=== PATIENT | male | born 1950 | race Caucasian/White ===

== ENCOUNTER 2020-08-07 07:25 | Outpatient (REF) | payer BC, SELFPAY ==
[2020-08-07 07:31] LABS: MANUAL DIFF FLAG NO
[2020-08-07 07:49] LABS: Basophils Absolute Auto 0.1 X10*3/uL (0.0-0.2); Basophils Percent Auto 1.1 % (0-2); Eosinophils Absolute Auto 0.4 X10*3/uL (0.0-0.4); Eosinophils Percent Auto 6.4 % (0-4); Hematocrit 44.2 % (42-52); Hemoglobin 14.9 g/dl (14.0-18.0); Imm Gran Abs Auto 0.01 X10*3/uL (0.00-0.03); Imm Gran Pct Auto 0.2 % (0.0-0.4); Lymphocytes Absolute Auto 1.7 X10*3/uL (1.2-4.9); Lymphocytes Percent Auto 25.1 % (20-40); Mean Corpuscular HGB Conc 33.7 g/dl (31.0-36.0); Mean Corpuscular Hemoglobin 31.3 pg (27.0-33.0); Mean Corpuscular Volume 92.9 fL (80-98); Mean Platelet Volume 9.8 fL (9.4-12.4); Monocytes Absolute Auto 0.4 X10*3/uL (0.1-1.2); Monocytes Percent Auto 6.1 % (2-11); Neutrophils Percent Auto 61.1 % (45-73); Platelet Count 204 X10*3/uL (160-400); Red Blood Count 4.76 X10*6/uL (4.60-5.80); Red Cell Distribution Width 11.8 % (11.0-16.0); White Blood Count 6.6 X10*3/uL (4.8-10.8)
[2020-08-07 08:34] LABS: Alanine Aminotransferase 10 U/L (0-40); Albumin Level 4.3 g/dL (3.5-5.0); Alkaline Phosphatase 69 U/L (39-117); Anion Gap 10 (12-20); Aspartate Amino Transferase 14 U/L (5-37); Bilirubin Total 0.9 mg/dL (0.0-1.0); Blood Urea Nitrogen 13 mg/dL (9-16); Carbon Dioxide 31 mmol/L (22-29); Chloride 103 mmol/L (96-108); Cholesterol 185 mg/dL; Estimated Glomerular Filt Rate > 60; Glucose Fasting 94 mg/dL (60-99); HDL Cholesterol 61 mg/dL; LDL Cholesterol Calculated 105 mg/dl; Potassium 4.6 mmol/l (3.3-5.1); Sodium 139 mmol/L (135-145); Total Protein 6.5 g/dL (6.5-8.0); Triglycerides 96 mg/dL
[2020-08-07 08:54] LABS: Prostate Specific Antigen Scr 0.81 ng/mL (<0.05-4.0)
== END 2020-08-07 07:26 | disposition home or self-care (01) ==
LOC: HO.LAB 07:25
PROVIDERS: Visit Provider Internal Medicine
DX: E11.9 Type 2 diabetes mellitus without complications (principal); N40.0 Benign prostatic hyperplasia without lower urinary tract symptoms
CPT/HCPCS: 36415; 80053; 80061; 84153; 85025

== ENCOUNTER 2020-10-08 13:50 | Outpatient (REF) | payer BC, SELFPAY ==
--- NOTE | 2020-10-08 13:56 | MM_ITS ---
EXAMINATION: MM DIAGNOSTIC DIGITAL BREAST TOMOSYNTHESIS, BILATERAL US DIAGNOSTIC ULTRASOUND BREAST, LEFT CLINICAL INFORMATION: 70 year old male with small palpable area for six-month inferior medial left breast. No pain or discharge. No prior breast imaging. COMPARISON: None (current study represents initial baseline exam). TECHNIQUE: Digital breast tomosynthesis is performed in both the craniocaudal and mediolateral oblique views along with computer-aided detection (CAD). Synthesized 2D images are generated from the tomosynthesis. Left images obtained with symptom marker. Ultrasound left breast is targeted to the area of clinical concern. Patient is able to point to area of concern at time of imaging. Grayscale imaging and color Doppler are performed without and with harmonics. FINDINGS: The breasts are almost entirely fatty (ACR BI-RADS breast composition Category a). There is no mass or architectural abnormality. No skin thickening or coarsening of the stromal markings. There are no abnormal calcifications. No focal duct ectasia. Ultrasound left breast demonstrates 2 small oval uniformly hyperechoic fat lobules near area of palpable concern. The larger 9:00 position 7 cm from nipple measuring 1.3 x 0.6 cm. The smaller at 8:00 position 8 cm from nipple measuring 0.5 x 0.4 cm. Both residing immediately beneath the skin with no mass effect and no mammographic correlate other than normal fat composition on mammography. There is no architectural abnormality or duct ectasia or edema tracking in soft tissue planes. No skin thickening. No intradermal lesion. Results are discussed with the patient at time of visit. MM/MM tomosynthesis diagnostic BI IMPRESSION: No mammographic evidence of malignancy. There are 2 incidental benign fat lobules on ultrasound in the area of patient palpable concern. ASSESSMENT: BI-RADS 2: Benign RECOMMENDATION: Patient may be followed clinically as needed. If there is ongoing clinical concern, further evaluation may be considered with surgical consult.
== END 2020-10-08 13:51 | disposition home or self-care (01) ==
LOC: HO.MAMMO 13:50
PROVIDERS: PCP Internal Medicine; Visit Provider Internal Medicine
DX: N63.22 Unspecified lump in the left breast, upper inner quadrant (principal)
CPT/HCPCS: 76642; 77062; 77066

== ENCOUNTER → 2020-10-31 09:44 | Outpatient (BNVA) | payer BC, SELFPAY | PROVIDERS: Visit Provider Urology ==

== ENCOUNTER 2021-08-15 10:38 | Outpatient (REF) | payer BC, SELFPAY ==
[2021-08-15 13:54] LABS: MANUAL DIFF FLAG NO
[2021-08-15 14:00] LABS: Basophils Absolute Auto 0.1 X10*3/uL (0.0-0.2); Eosinophils Absolute Auto 0.2 X10*3/uL (0.0-0.4); Eosinophils Percent Auto 3.8 % (0-4); Hematocrit 45.2 % (42.0-52.0); Hemoglobin 15.1 g/dl (14.0-18.0); Imm Gran Abs Auto 0.01 X10*3/uL (0.00-0.03); Imm Gran Pct Auto 0.2 % (0.0-0.4); Lymphocytes Absolute Auto 1.3 X10*3/uL (1.2-4.9); Lymphocytes Percent Auto 21.8 % (20-40); Mean Corpuscular HGB Conc 33.4 g/dl (31.0-36.0); Mean Corpuscular Hemoglobin 30.9 pg (27.0-33.0); Mean Corpuscular Volume 92.6 fL (80.0-98.0); Monocytes Absolute Auto 0.4 X10*3/uL (0.1-1.2); Monocytes Percent Auto 6.6 % (2-11); Neutrophils Absolute Auto 4.1 x10*3/uL (2.0-8.3); Neutrophils Percent Auto 66.6 % (45-73); Platelet Count 220 X10*3/uL (160-400); Red Blood Count 4.88 X10*6/uL (4.60-5.80); Red Cell Distribution Width 12.2 % (11.0-16.0); White Blood Count 6.1 X10*3/uL (4.8-10.8)
[2021-08-15 14:25] LABS: Alanine Aminotransferase 14 U/L (0-40); Albumin Level 4.4 g/dL (3.5-5.0); Alkaline Phosphatase 71 U/L (39-117); Anion Gap 9 (12-20); Aspartate Amino Transferase 14 U/L (5-37); Bilirubin Total 0.8 mg/dL (0.0-1.0); Blood Urea Nitrogen 12 mg/dL (9-16); Calcium 9.3 mg/dL (8.4-10.2); Carbon Dioxide 31 mmol/L (22-29); Chloride 101 mmol/L (96-108); Cholesterol 200 mg/dL; Estimated Glomerular Filt Rate > 60; Glucose Fasting 89 mg/dL (60-99); HDL Cholesterol 59 mg/dL; LDL Cholesterol Calculated 116 mg/dl; Potassium 4.3 mmol/L (3.3-5.1); Sodium 137 mmol/L (135-145); Total Protein 6.7 g/dL (6.5-8.0); Triglycerides 126 mg/dL
[2021-08-15 14:43] LABS: Prostate Specific Antigen Scr 0.88 ng/mL (<0.05-4.0)
== END 2021-08-15 10:39 | disposition home or self-care (01) ==
LOC: HO.HMGCLDS 10:38
PROVIDERS: PCP Internal Medicine; Visit Provider Internal Medicine
DX: Z00.00 Encounter for general adult medical examination without abnormal findings (principal)
CPT/HCPCS: 36415; 80053; 80061; 84153; 84443; 85025

== ENCOUNTER → 2022-08-04 09:18 | Outpatient (BNVA) | payer MEDICARE, SELFPAY | PROVIDERS: PCP Internal Medicine; Visit Provider Urology | DX: N40.1 Benign prostatic hyperplasia with lower urinary tract symptoms (principal); N13.8 Other obstructive and reflux uropathy | CPT/HCPCS: 51798; 99212 ==

== ENCOUNTER 2022-08-05 10:01 | Outpatient (REF) | payer MEDICARE, SELFPAY ==
[2022-08-05 10:22] LABS: MANUAL DIFF FLAG NO
[2022-08-05 10:29] LABS: Basophils Absolute Auto 0.1 X10*3/uL (0.0-0.2); Basophils Percent Auto 0.9 % (0-2); Eosinophils Absolute Auto 0.3 X10*3/uL (0.0-0.4); Eosinophils Percent Auto 5.7 % (0-4); Hematocrit 43.4 % (42.0-52.0); Hemoglobin 14.6 g/dl (14.0-18.0); Imm Gran Abs Auto 0.01 X10*3/uL (0.00-0.03); Imm Gran Pct Auto 0.2 % (0.0-0.4); Lymphocytes Absolute Auto 1.3 X10*3/uL (1.2-4.9); Lymphocytes Percent Auto 24.3 % (20-40); Mean Corpuscular HGB Conc 33.6 g/dl (31.0-36.0); Mean Corpuscular Hemoglobin 31.3 pg (27.0-33.0); Mean Corpuscular Volume 92.9 fL (80.0-98.0); Mean Platelet Volume 10.2 fL (9.4-12.4); Monocytes Absolute Auto 0.3 X10*3/uL (0.1-1.2); Monocytes Percent Auto 5.3 % (2-11); Neutrophils Absolute Auto 3.5 x10*3/uL (2.0-8.3); Neutrophils Percent Auto 63.6 % (45-73); Platelet Count 216 X10*3/uL (160-400); Red Blood Count 4.67 X10*6/uL (4.60-5.80); Red Cell Distribution Width 12.1 % (11.0-16.0); White Blood Count 5.5 X10*3/uL (4.8-10.8)
[2022-08-05 11:06] LABS: Anion Gap 15 (12-20); Carbon Dioxide 28 mmol/L (22-29); Chloride 104 mmol/L (96-108); Potassium 4.8 mmol/L (3.3-5.1); Sodium 142 mmol/L (135-145)
[2022-08-05 11:07] LABS: Alanine Aminotransferase 19 U/L (0-40); Albumin Level 4.2 g/dL (3.5-5.0); Alkaline Phosphatase 72 U/L (39-117); Aspartate Amino Transferase 17 U/L (5-37); Bilirubin Total 0.3 mg/dL (0.0-1.0); Blood Urea Nitrogen 16 mg/dL (9-16); Calcium 9.3 mg/dL (8.4-10.2); Cholesterol 188 mg/dL; Estimated Glomerular Filt Rate > 60; Glucose Fasting 100 mg/dL (60-99); HDL Cholesterol 56 mg/dL; LDL Cholesterol Calculated 112 mg/dl; Total Protein 6.4 g/dL (6.5-8.0); Triglycerides 103 mg/dL
== END 2022-08-05 10:02 | disposition home or self-care (01) ==
LOC: HO.10HDL 10:01
PROVIDERS: Visit Provider Internal Medicine
DX: Z13.0 Encounter for screening for diseases of the blood and blood-forming organs and certain disorders involving the immune mechanism (principal); I10 Essential (primary) hypertension; E78.5 Hyperlipidemia, unspecified
CPT/HCPCS: 36415; 80053; 80061; 85025

== ENCOUNTER 2023-07-24 09:15 | Outpatient (REF) | payer MEDICARE, SELFPAY ==
[2023-07-24 14:23] LABS: PSA,Total (Free>4and<10) 1.31 ng/mL (0.00-4.00)
== END 2023-07-24 09:16 | disposition home or self-care (01) ==
LOC: HO.LAB 09:15
PROVIDERS: PCP Internal Medicine; Visit Provider Urology
DX: N40.1 Benign prostatic hyperplasia with lower urinary tract symptoms (principal); R33.8 Other retention of urine; Z12.5 Encounter for screening for malignant neoplasm of prostate
CPT/HCPCS: 36415; 84153

== ENCOUNTER 2023-08-05 08:36 | Outpatient (AMB) | payer MEDICARE, SELFPAY ==
--- NOTE | 2023-08-05 08:37 | A.OFFVIS_ITS ---
Intake Intake Visit Reasons: 1Y PSA(set) Intake Note: pt presents for telehealth 1 yr PSA follow up Redevelopment Specialist Required: No Allergies No Known Drug Allergies [NO KNOWN DRUG ALLERGIES] Allergy (Unknown, Verified 08/05/23 08:38) NONE HPI HPI Comments History of Present Illness Details Mauri DANIEL is a very pleasant male. He is a patient of Dr Myrick. They are seen in the office today for the following urologic conditions. - lower urinary tract symptoms Telemedicine Evaluation 15 min Consultation [employer] Srinivasan Video Lower Urinary Tract Symptoms: Large prostate, mild incomplete emptying. Maximized on finasteride. Happy with current voiding performance Minimal urgency on medication Does have occasional nocturia based on what he drinks Finasteride M/W/F SHARMIN normal 12 month PSA Current visit is for further evaluation of, lower urinary tract symptoms, predominate obstructive symptoms. Current treatment includes 5-AR. Prostate Symptom Score 07/22 , Moderate (9-19), Bother 3. Symptoms include incomplete emptying, weak stream, and are progressing. Prior Prostate Score unknown. Prostate volume 07/22 US 122 size - PSA 07/02 3.4, 08/24 .9, 08/26 1.3 Testing at next visit will include bladder scan. Treatment plan continue 5AR PFSH Medical History Prostatism Surgical History History of inguinal hernia repair Family History Father No problems noted. Mother No problems noted. Social History Housing: House Alcohol intake: current Alcohol intake frequency: a few times a week Patient Tobacco Use Status: Never used Tobacco e-Cigarette/Vaping Use: Never Used Second Hand Smoke Exposure: No service: No Current occupational status: retired Cognitive needs: No Hearing needs: No Vision needs: No Review of Systems Const All systems reviewed & are unremarkable except as noted in HPI and below Reports no additional complaints Resp Reports no additional complaints GI Reports no additional complaints Reports as per HPI Musc Reports no additional complaints Physical Exam Telemedicine evaluation Appropriate responses Regular breathing rate and rhythm HEENT Head: Yes normal to inspection Ears: hearing grossly normal bilaterally Eyes General: appearance normal, both eyes and all related structures Neck Neck: Yes normal visual inspection Chest Chest palpation & inspection: normal inspection of the chest Resp Effort & Inspection: normal respiratory effort and able to speak in complete sentences Assessment & Plan Assessment & Plan (1) BPH w urinary obs/LUTS: Code(s): N40.1 - Benign prostatic hyperplasia with lower urinary tract symptoms; N13.8 - Other obstructive and reflux uropathy (2) Incomplete emptying of bladder due to benign prostatic hyperplasia: Code(s): N40.1 - Benign prostatic hyperplasia with lower urinary tract symptoms; R33.9 - Retention of urine, unspecified Plan Twelve month follow-up Medications: Refilled finasteride 5 mg PO DAILY 90 days 90 tabs 1RF Patient Instructions: Imaging studies, laboratory and physical exam results were discussed and reviewed in detail. No major barriers to patient understanding were identified. An opportunity to ask questions regarding the treatment plan was provided. All questions were answered. The patient expressed understanding and agreement with the above treatment plan. The patient is aware they should contact our office by phone for worsening of their current condition or the appearance of new urologic symptoms. Compliance is encouraged with any medications and followup testing that is ordered. It is a privilege to participate in the urologic care of your patient. If you have any questions or concerns regarding treatment for the above conditions, or other urologic issues, please do not hesitate to contact me. The office telephone contact is [phone]. This note is constructed using voice recognition software. While every effort has been made to ensure accuracy forest practices field coordinator errors may have been included. Yours sincerely, Dr Kong Almodovar MD, [facility] - Urology Providers of Expert, Compassionate Care for the Genitourinary System Telehealth Telehealth Location of provider rendering services: practice address Location of patient: address on file Patient Identification confirmed using: Name, : Yes Telehealth method: video Patient verbally consented to treatment: Yes Patient verbally consented to billing insurance company: Yes Patient informed of any privacy concerns related to visit: Yes Coding Level of Care Code Tele Est Pt Level 4 (47923) Diagnoses BPH w urinary obs/LUTS N40.1; N13.8 Incomplete emptying of bladder due to benign prostatic hyperplasia N40.1; R33.9
== END 2023-08-05 09:49 | disposition home or self-care (01) ==
LOC: HO.HUSH 08:36
PROVIDERS: PCP Internal Medicine; Visit Provider Urology
DX: N40.1 Benign prostatic hyperplasia with lower urinary tract symptoms (principal); N13.8 Other obstructive and reflux uropathy; R33.9 Retention of urine, unspecified
CPT/HCPCS: 99213

== ENCOUNTER → 2023-08-05 08:36 | Outpatient (BNVA) | payer MEDICARE, SELFPAY | PROVIDERS: PCP Internal Medicine; Visit Provider Urology ==

== ENCOUNTER 2023-08-10 08:55 | Outpatient (AMB) | payer MEDICARE, SELFPAY ==
[2023-08-10 08:59] VITALS: BP 110/82; PULSE 65; O2SAT 97; BMI 29.5
--- NOTE | 2023-08-10 08:59 | MHC.PC.OV ---
Vital Signs 08/10/23 08:59 Height 5 ft 8 in Weight 194 lb BMI 29.5 BP 110/82 Blood Pressure Location Lt brachial Position Sitting Pulse 65 Pulse Source Pulse Oximeter Pulse Oximetry (%) 97 Oxygen Delivery Method Room Air Intake Visit Reasons: Annual Exam Middle School Coach Required: No Organ Pipe Voicer: Not Required per policy Accompanied by: Self / Same As Patient Allergies No Known Drug Allergies [NO KNOWN DRUG ALLERGIES] Allergy (Unknown, Verified 08/10/23 08:59) NONE Medication List - Last Reconciled 08/10/23 by Edward Rivera MD finasteride 5 mg PO DAILY 90 days Tobacco use date assessed: 08/10/23 Fall risk assessment: No Falls in past year Last assessed Fall Risk: 08/10/23 Dental Screening Dental Screen Date: 08/10/23 Did you have a dental visit in the last 12 months?: Yes Did you have a dental problem in the last 6 months where you did not have access to dental care?: No Was dental information given to patient?: Patient has dentist HPI Annual Exam HPI Details BPH on Rx; sees urology [facility] Medical History Prostatism Surgical History History of inguinal hernia repair Family History Father No problems noted. Mother No problems noted. Social History Housing: House Alcohol intake: current Alcohol intake frequency: a few times a week Patient Tobacco Use Status: Never used Tobacco e-Cigarette/Vaping Use: Never Used Second Hand Smoke Exposure: No service: No Current occupational status: retired Cognitive needs: No Hearing needs: No Vision needs: No Questionnaire PHQ-9 Over the last 2 weeks, how often have you been bothered by any of the following problems? 1. Little interest or pleasure in doing things: not at all 2. Feeling down, depressed, or hopeless: not at all 3. Trouble falling or staying asleep, or sleeping too much: not at all 4. Feeling tired or having little energy: not at all 5. Poor appetite or overeating: not at all 6. Feeling bad about yourself - or that you are a failure or have let yourself or your family down: not at all 7. Trouble concentrating on things, such as reading the newspaper or watching television: not at all 8. Moving or speaking so slowly that other people could have noticed. Or the opposite - being so fidgety or restless that you have been moving around a lot more than usual: not at all 9. Thoughts that you would be better off or of hurting yourself in some way: not at all Total score: 0 Depression Screening Interpretation: Negative Depression Screening Done: Yes 34281 - PHQ-9 Billing: Yes Source: Developed by Drs. Lei Dover, Lilliana Olmstead, Joe Ruiz and colleagues, with an educational rasta from [employer]. Thrive Questionnaire Date Thrive assessed: 08/10/23 I am a: Patient What is your living situation today?: I have a steady place to live Within the past 12 months, did the food you bought not last and you didn't have the money to get more?: Never true Within the past 12 months, did you worry whether your food would run out before you got money to buy more?: Never true Do you have trouble paying for medicines?: No Do you have trouble getting transportation to medical appointments?: No Do you have trouble paying your heating and electricity bill?: No Do you have trouble taking care of your child, family member or friend?: No Do you have trouble with day-to-day activities such as bathing, preparing meals, shopping, managing finances, etc.?: No Are you currently unemployed and looking for a job?: No Are you interested in more education?: No Please select the resources that you would like help with: None AUDIT C Alcohol Use Questionnaire (AUDIT-C) 1. How often do you have a drink containing alcohol?: 2-3 times a week 2. How many drinks containing alcohol do you have on a typical day when you are drinking?: 1 or 2 Total Score: 3 Score Reviewed/Action Taken: Yes CRISELDA-7 AMB Questionnaire CRISELDA-7 Date CRISELDA - 7 assessed: 08/10/23 Feeling nervous, anxious, or on edge: 0 = Not at all Not being able to stop or control worryin = Not at all Worrying too much about different things: 0 = Not at all Trouble relaxin = Not at all Being so restless that it is hard to sit still: 0 = Not at all Becoming easily annoyed or irritable: 0 = Not at all Feeling afraid as if something awful might happen: 0 = Not at all Total CRISELDA-7 score (0-4 normal; 5-9 mild; 10-14 moderate; 15-21 severe): 0 Source: Developed by Drs. Lei Dover, Lilliana Olmstead, Joe Ruiz and colleagues, with an educational rasta from [employer]. CRISELDA-7 Assessment Billing CRISELDA-7 Assessment Tool: CRISELDA-7 Assessment 77101 Review of Systems Const Denies chills, Denies fatigue, Denies headache(s) and Denies weight loss Eyes Denies change in vision, Denies diplopia and Denies eye pain ENT Denies vertigo, Denies dizziness, Denies headache(s) and Denies nasal discharge Card Denies chest pain, Denies rapid heart rate and Denies dyspnea on exertion Resp Denies chest congestion, Denies cough, Denies pain with cough and Denies dyspnea on exertion GI Denies abdominal pain, Denies hematochezia and Denies change in bowel habits Musc Denies myalgias, Denies arthralgias and Denies joint swelling Skin/Breast Denies lesions and Denies unusual bruising Neuro Denies vertigo, Denies dizziness, Denies headache(s) and Denies focal weakness Endo Denies fatigue Physical exam (Primary Care) Vital Signs: Last Vital Signs Pulse 65 08/10/23 08:59 BP 110/82 08/10/23 08:59 Pulse Ox 97 08/10/23 08:59 Oxygen Delivery Method Room Air 08/10/23 08:59 BMI result Body Mass Index 29.5 Tobacco/Smoking Status: Tobacco use Status Tobacco use date assessed 08/10/23 08/10/23 09:06 Patient Tobacco Use Status Never used Tobacco 08/10/23 09:06 e-Cigarette/Vaping Use Never Used 08/10/23 09:06 PHQ-9: PHQ-9 Score PHQ-9: Total score 0 08/10/23 09:10 Depression Screening Interpretation: Negative Thrive Assessment: Date of Thrive Assessment Date Thrive assessed 08/10/23 08/10/23 09:06 Advance Care Planning discussion: On file, no changes Forms completed: Health Care Proxy Const General: cooperative, healthy appearing and no acute distress Orientation/consciousness: oriented to person, oriented to place and oriented to time HENNH Head: Yes normal to inspection, Yes normocephalic and Yes atraumatic Mouth: Normal oral and palatal mucosa present and tongue normal Throat: Yes posterior oropharynx normal and Yes uvula midline Eyes General: appearance normal, both eyes and all related structures Neck Neck: Yes normal visual inspection, Yes full ROM and Yes no lymphadenopathy Thyroid: Thyroid normal Carotids: normal carotid upstroke Chest Chest palpation & inspection: normal inspection of the chest Resp Effort & Inspection: normal respiratory effort and able to speak in complete sentences Auscultation: clear to auscultation bilaterally Cardio Jugular venous distension: no JVD Palpation: normal PMI Rate: regular rate Rhythm: regular rhythm Heart sounds: S1 normal heart sound present and S2 normal heart sound present GI Inspection: Yes normal to inspection Palpation (GI): Soft to palpation and No hepatosplenomegaly present Auscultation: normal bowel sounds General: Yes no CVA tenderness Back/Spine/Pelvis Back: no CVA tenderness Skin General skin exam: no rashes or lesions noted Neuro General: oriented to person, oriented to place and oriented to time Extrem General: Yes normal to inspection and Yes full ROM Office Procedures Flu Questionnaire Does the patient have a severe egg allergy?: No Does the patient have severe life threatening allergies?: No Does the patient have a fever or illness today?: No Has the patient ever had Guillain-[place] Syndrome?: No Has the patient ever had any past reaction to a flu shot?: No Immunizations flu vacc [id number] 6mos up(PF) 60 mcg(15 mcgx4)/0.5 mL IM syringe Performing Provider: Edward Rivera MD Performing Location: [facility] Administered by: ZACKERY Guerrero on 08/10/23 09:10 Dose Route Admin Location Dispensed Lot Number Expiration Date NDC [employer] Furniture [employer] 0.5 mL IM Left Deltoid 0.5 mL [id number] 04/02/24 84061-066-76 [facility] VIS Given Date VIS Provided VIS Publication Date 08/10/23 Single Vaccine 21 Eligibility Eligibility Date Funding Source Not [facility] Eligible 08/10/23 Private Assessment and Plan Assessment & Plan (1) Physical exam: Code(s): Z00.00 - Encounter for general adult medical examination without abnormal findings Plan: do labs (2) Prostatism: Code(s): N40.0 - Benign prostatic hyperplasia without lower urinary tract symptoms Plan: stable; same rx Orders: Orders Complete Blood Count Auto Diff Today D64.9 - Anemia, unspecified Comprehensive [place]. Panel Fast Today N28.9 - Disorder of kidney and ureter, unspecified Lipid Panel Today E78.5 - Hyperlipidemia, unspecified Influenza 9639-9026 Immunization Today Z23 - Encounter for immunization Thyroid Stimulating Hormone Today E03.9 - Hypothyroidism, unspecified Referrals Podiatry Referral B35.1 - Tinea unguium Coding Level of Care Code Est Pt Prev Care >65y(99585) Diagnoses Physical exam Z00.00 Prostatism N40.0 Additional Codes CRISELDA-7 Assessment Billing - CRISELDA-7 Assessment Tool: CRISELDA-7 Assessment 38997 ([id number]) Vital Signs *Quality* - Advance Care Planning discussion: On file, no changes ([id number])
== END 2023-08-10 09:28 | disposition home or self-care (01) ==
PROVIDERS: Visit Provider Internal Medicine
DX: Z00.00 Encounter for general adult medical examination without abnormal findings (principal); N40.0 Benign prostatic hyperplasia without lower urinary tract symptoms; Z23 Encounter for immunization
CPT/HCPCS: 1123F; 90471; 90686; 99397

== ENCOUNTER 2023-08-18 11:16 | Outpatient (REF) | payer MEDICARE, SELFPAY ==
[2023-08-18 13:21] LABS: MANUAL DIFF FLAG NO
[2023-08-18 13:30] LABS: Basophils Percent Auto 0.7 % (0-2); Eosinophils Absolute Auto 0.3 X10*3/uL (0.0-0.4); Eosinophils Percent Auto 4.9 % (0-4); Hematocrit 43.8 % (42.0-52.0); Hemoglobin 14.8 g/dl (14.0-18.0); Imm Gran Abs Auto 0.01 X10*3/uL (0.00-0.03); Imm Gran Pct Auto 0.2 % (0.0-0.4); Lymphocytes Absolute Auto 1.6 X10*3/uL (1.2-4.9); Lymphocytes Percent Auto 26.7 % (20-40); Mean Corpuscular HGB Conc 33.8 g/dl (31.0-36.0); Mean Corpuscular Volume 94.6 fL (80.0-98.0); Mean Platelet Volume 10.8 fL (9.4-12.4); Monocytes Absolute Auto 0.4 X10*3/uL (0.1-1.2); Monocytes Percent Auto 6.1 % (2-11); Neutrophils Absolute Auto 3.7 x10*3/uL (2.0-8.3); Neutrophils Percent Auto 61.4 % (45-73); Platelet Count 197 X10*3/uL (160-400); Red Blood Count 4.63 X10*6/uL (4.60-5.80)
[2023-08-18 14:28] LABS: Alanine Aminotransferase 9 U/L (0-40); Albumin Level 4.3 g/dL (3.5-5.0); Alkaline Phosphatase 65 U/L (39-117); Anion Gap 10 (12-20); Aspartate Amino Transferase 14 U/L (5-37); Bilirubin Total 0.7 mg/dL (0.0-1.0); Blood Urea Nitrogen 15 mg/dL (9-16); Calcium 9.3 mg/dL (8.4-10.2); Carbon Dioxide 30 mmol/L (22-29); Chloride 105 mmol/L (96-108); Cholesterol 183 mg/dL (<200); Estimated Glomerular Filt Rate > 60; Glucose Fasting 85 mg/dL (60-99); HDL Cholesterol 61 mg/dL (>40); LDL Cholesterol Calculated 103 mg/dL (<100); Potassium 3.9 mmol/L (3.3-5.1); Sodium 141 mmol/L (135-145); Total Protein 6.9 g/dL (6.5-8.0); Triglycerides 95 mg/dL (<150)
[2023-08-18 14:35] LABS: Thyroid Stimulating Hormone 1.85 uIU/mL (0.32-4.0)
== END 2023-08-18 11:17 | disposition home or self-care (01) ==
LOC: HO.HMGCLDS 11:16
PROVIDERS: PCP Internal Medicine; Visit Provider Internal Medicine
DX: E78.5 Hyperlipidemia, unspecified (principal); D64.9 Anemia, unspecified; N28.9 Disorder of kidney and ureter, unspecified; E03.9 Hypothyroidism, unspecified
CPT/HCPCS: 36415; 80053; 80061; 84443; 85025

== ENCOUNTER 2024-08-04 09:30 | Outpatient (AMB) | payer MEDICARE, SELFPAY ==
--- NOTE | 2024-08-04 09:33 | A.OFFVIS_ITS ---
Intake Visit Reasons: 1y/PVR Intake Note: Patient is present for PVR Follow Up Urology Med: Finasteride Antibiotic Allergy: None Blood Thinner: None Last PSA: 2022 1.31 Last PVR:35ml Todays PVR:0ml Civil Engineer Helper Required: No Accompanied by: Self / Same As Patient Allergies No Known Drug Allergies [NO KNOWN DRUG ALLERGIES] Allergy (Unknown, Verified 08/04/24 09:35) NONE HPI Comments Details: Mauri DANIEL is a very pleasant male. He is a patient of Dr Myrick. They are seen in the office today for the following urologic conditions. - lower urinary tract symptoms Yearly follow-up Continues with finasteride Discussed erectile medications He is considering Lower Urinary Tract Symptoms: Large prostate, mild incomplete emptying. Maximized on finasteride. Happy with current voiding performance Minimal urgency on medication Does have occasional nocturia based on what he drinks Finasteride M/W/F SHARMIN normal 12 month PSA Current visit is for further evaluation of, lower urinary tract symptoms, predominate obstructive symptoms. Current treatment includes 5-AR. Prostate Symptom Score 07/22 , Moderate (9-), Bother 3. Symptoms include incomplete emptying, weak stream, and are progressing. Prior Prostate Score unknown. Prostate volume 07/22 US 122 size - PSA 07/02 3.4, 08/24 .9, 08/26 1.3 Testing at next visit will include bladder scan. Treatment plan continue 5AR PFSH Medical History Prostatism Surgical History History of inguinal hernia repair Family History Father No problems noted. Mother No problems noted. Social History Housing: House Alcohol intake: current Alcohol intake frequency: a few times a week Patient Tobacco Use Status: Never used Tobacco e-Cigarette/Vaping Use: Never Used Second Hand Smoke Exposure: No service: No Current occupational status: retired Cognitive needs: No Hearing needs: No Vision needs: No Review of Systems Const Denies chills and Denies fever(s) Card Reports no additional complaints and Denies syncope Resp Denies cough GI Denies abdominal pain and Denies heartburn Reports as per HPI and Denies change in libido Neuro Denies syncope Psych Denies change in libido Endo Denies change in libido Physical Exam Const General: cooperative, healthy appearing, comfortable and no acute distress Orientation/consciousness: patient oriented x3 HEENT Face and sinus: Yes normal facial exam Mouth: moist mucous membranes Neck Neck: Yes normal visual inspection, Yes full ROM and Yes trachea midline Chest Chest palpation & inspection: normal inspection of the chest Resp Effort & Inspection: normal respiratory effort, able to speak in complete sentences and no respiratory distress GI Inspection: Yes normal to inspection Back/Spine/Pelvis Cervical Spine: normal cervical lordosis Thoracic/Lumbar Spine: thoracic and lumbar spine normal to inspection Skin General skin exam: no rashes or lesions noted Neuro General: patient oriented x3, gait normal, tone normal and moves all extremities Extrem General: Yes normal to inspection and Yes capillary refill normal Office Procedures Post Void Residual Post Residual Void Post Void Residual (PVR): 35 [id number] Void Residual by ultrasound Assessment & Plan Assessment & Plan (1) BPH w urinary obs/LUTS: Code(s): N40.1 - Benign prostatic hyperplasia with lower urinary tract symptoms; N13.8 - Other obstructive and reflux uropathy Category: Medical (2) Incomplete emptying of bladder due to benign prostatic hyperplasia: Code(s): N40.1 - Benign prostatic hyperplasia with lower urinary tract symptoms; R33.9 - Retention of urine, unspecified Category: Medical Plan Continue finasteride Yearly follow-up Orders: Orders AMB Post Void Residual by ultrasound Today N40.1 - Benign prostatic hyperplasia with lower urinary tract symptoms, R33.9 - Retention of urine, unspecified Patient Instructions: Imaging studies, laboratory and physical exam results were discussed and reviewed in detail. No major barriers to patient understanding were identified. An opportunity to ask questions regarding the treatment plan was provided. All questions were answered. The patient expressed understanding and agreement with the above treatment plan. The patient is aware they should contact our office by phone for worsening of their current condition or the appearance of new urologic symptoms. Compliance is encouraged with any medications and followup testing that is ordered. It is a privilege to participate in the urologic care of your patient. If you have any questions or concerns regarding treatment for the above conditions, or other urologic issues, please do not hesitate to contact me. The office telephone contact is [phone]. This note is constructed using voice recognition software. While every effort has been made to ensure accuracy occ therapy asst errors may have been included. Yours sincerely, Dr Kong Almodovar MD, [facility] - Urology Providers of Expert, Compassionate Care for the Genitourinary System Coding Level of Care Code Est Pt Level 4 (57747) Diagnoses BPH w urinary obs/LUTS N40.1; N13.8 Incomplete emptying of bladder due to benign prostatic hyperplasia N40.1; R33.9 CPT Codes Post Residual Void - PVR CPT Code: 18990-[id number] Void Residual by ultrasound ([id number])
== END 2024-08-04 10:11 | disposition home or self-care (01) ==
LOC: HO.HUSH 09:30
PROVIDERS: PCP Internal Medicine; Visit Provider Urology
DX: N40.1 Benign prostatic hyperplasia with lower urinary tract symptoms (principal); N13.8 Other obstructive and reflux uropathy; R33.9 Retention of urine, unspecified
CPT/HCPCS: 99214

== ENCOUNTER → 2024-08-04 09:30 | Outpatient (BNVA) | payer MEDICARE, SELFPAY | PROVIDERS: PCP Internal Medicine; Visit Provider Urology | DX: N40.1 Benign prostatic hyperplasia with lower urinary tract symptoms (principal); N13.8 Other obstructive and reflux uropathy; R33.9 Retention of urine, unspecified | CPT/HCPCS: 51798; 99212 ==

== ENCOUNTER 2024-08-14 08:56 | Outpatient (AMB) | payer MEDICARE, SELFPAY ==
[2024-08-14 08:58] VITALS: BP 110/72; PULSE 65; O2SAT 95; BMI 29.6
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
== END 2024-08-14 09:29 | disposition home or self-care (01) ==
PROVIDERS: PCP Internal Medicine; Visit Provider Internal Medicine
DX: Z00.00 Encounter for general adult medical examination without abnormal findings (principal); N40.0 Benign prostatic hyperplasia without lower urinary tract symptoms

== ENCOUNTER → 2024-08-14 08:56 | Outpatient (BNVA) | payer MEDICARE, SELFPAY | PROVIDERS: PCP Internal Medicine; Visit Provider Internal Medicine | DX: Z00.00 Encounter for general adult medical examination without abnormal findings (principal); N40.0 Benign prostatic hyperplasia without lower urinary tract symptoms | CPT/HCPCS: 96127; 99397 ==

== ENCOUNTER 2024-10-20 08:43 | Outpatient (REF) | payer MEDICARE, SELFPAY ==
[2024-10-20 10:17] LABS: MANUAL DIFF FLAG NO
[2024-10-20 10:31] LABS: Basophils Absolute Auto 0.1 X10*3/uL (0.0-0.2); Eosinophils Absolute Auto 0.3 X10*3/uL (0.0-0.4); Eosinophils Percent Auto 4.9 % (0-4); Hematocrit 43.5 % (42.0-52.0); Hemoglobin 14.7 g/dl (14.0-18.0); Imm Gran Abs Auto 0.02 X10*3/uL (0.00-0.03); Imm Gran Pct Auto 0.3 % (0.0-0.4); Lymphocytes Absolute Auto 1.5 X10*3/uL (1.2-4.9); Lymphocytes Percent Auto 24.5 % (20-40); Mean Corpuscular HGB Conc 33.8 g/dl (31.0-36.0); Mean Corpuscular Hemoglobin 31.3 pg (27.0-33.0); Mean Corpuscular Volume 92.8 fL (80.0-98.0); Mean Platelet Volume 10.1 fL (9.4-12.4); Monocytes Absolute Auto 0.4 X10*3/uL (0.1-1.2); Monocytes Percent Auto 6.5 % (2-11); Neutrophils Absolute Auto 3.9 x10*3/uL (2.0-8.3); Neutrophils Percent Auto 62.8 % (45-73); Platelet Count 209 X10*3/uL (160-400); Red Blood Count 4.69 X10*6/uL (4.60-5.80); Red Cell Distribution Width 12.7 % (11.0-16.0); White Blood Count 6.2 X10*3/uL (4.8-10.8)
[2024-10-20 10:48] LABS: Alanine Aminotransferase 14 U/L (0-40); Albumin Level 4.2 g/dL (3.5-5.0); Alkaline Phosphatase 69 U/L (39-117); Anion Gap 9 (12-20); Aspartate Amino Transferase 18 U/L (5-37); Bilirubin Total 0.6 mg/dL (0.0-1.0); Blood Urea Nitrogen 18 mg/dL (9-16); Calcium 9.2 mg/dL (8.4-10.2); Carbon Dioxide 29 mmol/L (22-29); Chloride 107 mmol/L (96-108); Cholesterol 188 mg/dL (<200); Estimated Glomerular Filt Rate > 60; Glucose Fasting 99 mg/dL (60-99); HDL Cholesterol 68 mg/dL (>40); LDL Cholesterol Calculated 107 mg/dL (<100); Potassium 4.5 mmol/L (3.3-5.1); Sodium 140 mmol/L (135-145); Total Protein 7.1 g/dL (6.5-8.0); Triglycerides 66 mg/dL (<150)
[2024-10-20 11:07] LABS: Thyroid Stimulating Hormone 1.52 uIU/mL (0.32-4.0)
== END 2024-10-20 08:44 | disposition home or self-care (01) ==
LOC: HO.HMGCLDS 08:43
PROVIDERS: PCP Internal Medicine; Visit Provider Internal Medicine
DX: Z13.0 Encounter for screening for diseases of the blood and blood-forming organs and certain disorders involving the immune mechanism (principal); Z13.29 Encounter for screening for other suspected endocrine disorder; Z13.220 Encounter for screening for lipoid disorders
CPT/HCPCS: 36415; 80053; 80061; 84443; 85025

== ENCOUNTER 2024-12-26 13:00 | Outpatient (AMB) | payer MEDICARE, SELFPAY ==
--- NOTE | 2024-12-26 13:14 | A.OFFPC_ITS ---
Vital Signs 12/26/24 13:20 Height 5 ft 7.25 in Weight 201 lb BMI 31.2 BP 120/64 Blood Pressure Location Rt brachial Pulse 63 Pulse Source Pulse Oximeter Temp 97.3 F Pulse Oximetry (%) 96 Intake Visit Reasons: New Patient Intake Note: would like to discuss PSA it was not done with blood work Allergies No Known Drug Allergies [NO KNOWN DRUG ALLERGIES] Allergy (Unknown, Verified 12/26/24 14:16) NONE Medication List - Last Reconciled 12/26/24 by Claudia Rosas PA-C finasteride 5 mg PO DAILY 90 days Tobacco use date assessed: 08/14/24 Dental Screening Dental Screen Date: 08/14/24 [facility] Medical History (Updated 12/26/24 @ 14:31 by Claudia Rosas PA-C) History of mammogram (~10/08/20) Class 1 obesity with body mass index (BMI) of 31.0 to 31.9 in adult Hyperlipidemia LDL goal <100 Establishing care with new doctor, encounter for Prostatism Surgical History History of colonoscopy (~09/13/15) History of inguinal hernia repair Family History Father No problems noted. Mother No problems noted. Social History Housing: House Alcohol intake: current Alcohol intake frequency: a few times a week Patient Tobacco Use Status: Never used Tobacco Tobacco use type: Cigarette e-Cigarette/Vaping Use: Never Used Second Hand Smoke Exposure: No service: No Current occupational status: retired Cognitive needs: No Hearing needs: No Vision needs: No Questionnaire Thrive Questionnaire Date Thrive assessed: 08/07/24 CRISELDA-7 AMB Questionnaire CRISELDA-7 Date CRISELDA - 7 assessed: 08/14/24 Source: Developed by Drs. Lei Dover, Lilliana Olmstead, Joe Ruiz and colleagues, with an educational rasta from [employer]. Physical exam (Primary Care) Vital Signs: Last Vital Signs Temp 97.3 F 12/26/24 13:20 Pulse 63 12/26/24 13:20 BP 120/64 12/26/24 13:20 Pulse Ox 96 12/26/24 13:20 Care Plan Goal for BP management: <130/80 at goal BMI result Body Mass Index 31.2 BMI Assessment/Plan discussion: High BMI High, discussed plan: lifestyle, weight reduction, dietary, physical activity and alcohol moderation Tobacco/Smoking Status: Tobacco use Status Tobacco use date assessed 08/14/24 12/26/24 13:16 Patient Tobacco Use Status Never used Tobacco 12/26/24 13:16 Tobacco use type Cigarette 12/26/24 13:16 e-Cigarette/Vaping Use Never Used 12/26/24 13:16 Thrive Assessment: Date of Thrive Assessment Date Thrive assessed 08/07/24 12/26/24 13:16 Coding Level of Care Code Est Pt Level 4 (02351) Complex EM visit Add On G2211 Diagnoses Establishing care with new doctor, encounter for Z76.89 BPH w urinary obs/LUTS N40.1; N13.8 Breast mass in male N63.0 Hyperlipidemia LDL goal <100 E78.5 Class 1 obesity with body mass index (BMI) of 31.0 to 31.9 in adult E66.811; Z 68.31 Assessment & Plan Assessment & Plan (1) Establishing care with new doctor, encounter for: Code(s): Z76.89 - Persons encountering health services in other specified circumstances Category: Medical (2) BPH w urinary obs/LUTS: Code(s): N40.1 - Benign prostatic hyperplasia with lower urinary tract symptoms; N13.8 - Other obstructive and reflux uropathy Category: Medical Plan: Patient denies any urinary related complaints. Currently on finasteride 5 mg daily. Condition is chronic and stable continue to monitor. (3) Breast mass in male: Code(s): N63.0 - Unspecified lump in unspecified breast Category: Medical Plan: Patient with abnormal breast ultrasound 10/08/2020. Requiring diagnostic mammogram which was ordered although never obtained. Will reorder new mamm ogram. Condition is chronic and stable continue to monitor. (4) Hyperlipidemia LDL goal <100: Code(s): E78.5 - Hyperlipidemia, unspecified Category: Medical Plan: Patient with hyperlipidemia with an LDL of 107 on 10/20/2024. Triglyceride level was within normal go range of 66. Total cholesterol 188. HDL 68. Patient was offered cholesterol-lowering medication at this time although patient declined and would like to trial diet and exercise to improve his LDL. I did give him information of what to avoid to improve his LDL and he will work on this. Will reassess in next 1 year visit. Condition is chronic and stable continue to monitor. (5) Class 1 obesity with body mass index (BMI) of 31.0 to 31.9 in adult: Code(s): E66.811 - Obesity, class 1; Z68.31 - Body mass index [BMI] 31.0-31.9, adult Category: Medical Plan: Patient to improve his diet and exercise regimen to improve his obesity. Condition is chronic and stable continue to monitor. Plan Plan Patient was informed and verbally consented to the use of an ambient scribe for clinic note documentation during this visit. 1. Family History Of Diabetes Mellitus Plan to monitor blood glucose regularly due to familial risk. 2. Benign Prostatic Hyperplasia Plan includes continuation of finasteride with stable symptoms management. 3. Hypercholesterolemia Plan to reduce dietary fats and recheck cholesterol levels annually. 4. Elevated Body Mass Index Plan includes dietary and activity recommendations for weight management. 5. Elevated Prostate-Specific Antigen Plan involves ordering a PSA test for further assessment. 6. History Of Fatty Tissue In Breast Plan involves ensuring completion of a follow-up mammogram. 7. Need For Diabetes Screening Plan includes ordering a hemoglobin A1c test. Discussion Notes I discussed with the patient the necessity of monitoring his prostate health via PSA testing, considering previous levels and his history of benign prostatic hyperplasia. We acknowledged the need for annual A1c screening, given his family history of diabetes. The potential impact of dietary habits on his elevated cholesterol was reviewed with suggestions for better dietary choices. Administrative issues regarding previous mammogram scheduling were addressed, and reassurances were given regarding follow-up. We also discussed the need for making dietary and lifestyle adjustments to manage his weight effectively. The patient agreed with the recommended plans and acknowledges the importance of regular monitoring of his health parameters in avoiding future complications. I intend to ensure all orders for pending tests are uploaded into our system to facilitate these processes. Orders: Orders PSA,Total (Free>4and<10) Today Z00.00 - Encounter for general adult medical examination without abnormal findings Hemoglobin A1c Today Z00.00 - Encounter for general adult medical examination without abnormal findings MM tomosynthesis diagnostic BI Today N63.0 - Unspecified lump in unspecified breast Patient Instructions: Patient Instructions - Follow up with PSA and A1c tests as ordered without delay. - Make dietary modifications to limit fried and fatty foods. - Continue regular physical activity, such as cycling, and engage in additional moderate exercises as possible. - Maintain scheduled follow-up appointments to monitor ongoing conditions. - Contact the office if any new or worsening symptoms occur, including changes in urinary habits, bowel movements, or unexplained weight gain. - Expect follow-up contact regarding the mammogram scheduling issue within the next month. Scribe Plan - Not visible on output: History of Present Illness The patient is a 74-year-old male presenting to establish a new primary care pro vider due to his PCP Dr. Rivera recently retired. He has a history of benign prostatic hyperplasia and is currently managed with finasteride. He reports stable urinary symptoms after an initial investigation including a cystoscopy several years ago. His PSA levels have shown fluctuations over time, and a recent lack of PSA monitoring was noted in his bloodwork in October of 2024 and patient would like this PSA assessed due to he believes it was supposed to be part of his annual physical blood work and he did not have it at that time. Familial diabetes mellitus history necessitates A1c monitoring, but recent tests did not include this. The patient had a colonoscopy around five to eight years ago, with no current follow-up required. An incidental finding of benign fatty tissue in the breast was noted in 2020, with follow-up mammography arrangements not completed as expected. He reports no new or alarming symptoms and acknowledges concerns over possible hypercholesterolemia influenced by dietary habits. Social History - Current activity includes occasional skiing and daily bicycle riding. - Denies regular exercise, yet participates in these activities, indicating a moderate level of physical activity. - Dietary intake has remained consistent, though there is some concern over foods potentially impacting cholesterol levels. Review of Systems - Cardiovascular: Denies chest pain, dizziness, or shortness of breath. - Gastrointestinal: Denies changes in bowel habits, presence of blood in stools, or abdominal pain. - Genitourinary: Denies difficulty urinating or blood in urine. - Endocrine: Denies known diabetes, reports stable sugar levels historically, despite a family history of diabetes. - Musculoskeletal: Experience of occasional leg cramps. - Neurological: Denies difficulties with hearing or seeing; reading glasses needed for age-related presbyopia. Physical Exam Appearance: Alert. Oriented X3. No acute distress. Head: Normal external exam. Normocephalic. Atraumatic. Eyes: Pupils are equal, round, and reactive to light. Extraocular movements intact. Conjunctiva and sclera normal. Eyelids normal. Ears: External auditory canal normal. Tympanic membranes normal. Little bit of wax, but not too bad. Throat: Pharynx normal. Uvula midline. Moist mucous membranes. Neck: Normal inspection. Neck supple. Full range of motion. No adenopathy. Thyroid Normal. No meningeal signs. No neck mass noted. Cardiovascular: Normal heart rate and rhythm. Heart sound normal. No murmurs noted. Pulses normal throughout. Respiratory: No respiratory distress. Painless inspiration. Breath sounds normal. No wheezes/rales/rhonchi noted. Chest nontender. No accessory muscle usage noted or decreased air movement noted. Abdomen: Soft and nontender. Bowel sounds normal in all 4 quadrants. No distention noted. No organomegaly noted. No visible injury noted. Back: No costovertebral angle tenderness. Full range of motion noted. Skin: Skin warm and dry. Normal skin color. Normal skin turgor. No rashes/lesions/lacerations noted. Extremities: No lower extremity edema. Extremities exhibit normal range of motion. Extremities nontender. No leg swelling noted. Neuro: Oriented X 3. No motor deficit. No sensory deficit. Reflexes normal. Results - Labs: Prior PSA levels noted as 3.4, 0.9, and 1.3 ng/mL; lack of recent testing identified. No A1c results available from the previous year's blood test. - Procedures: Colonoscopy approximately 5-8 years prior, follow-up not currently due based on office communication.
[2024-12-26 13:20] VITALS: BP 120/64; PULSE 63; TEMP 36.3; O2SAT 96; BMI 31.2
--- OUTSIDE RECORDS SUMMARY | 2024-12-26 15:48 | XMS_ITS | Patient Health Record ---
Author Organization [facility] Address [address] [place] [address] Care Team Providers Care Educational Consultant Name Role Phone Edward Rivera MD Primary Care Provider Milton Briceño Unavailable [phone] Allergies No Known Allergies Reason For Referral No Information Medications Medication SIG (Take, Route, Frequency, Duration) Notes Start Date End Date Status Finasteride Active Finasteride Active Lamisil 250mg 1 tablet orally Once daily for 30 days Active Social History Tobacco Use: Social History Observation Description Date Details (start date - stop date) Never Smoker NA - NA Tobacco Use/Smoking Question Answer Notes Are you a: nonsmoker Additional Findings: Tobacco Non-User Current no n-smoker Alcohol Screen Question Answer Notes Did you have a drink containing alcohol in the p ast year? Yes Points 0 Interpretation Negative Tobacco use other than smoking: Question Answer Notes Are you an other tobacco user? No Problems Problem Type SNOMED Code ICD Code Onset Dates Problem Status W/U Status Risk Notes Problem 824240052 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 Rx management (4),Response to treatment - Unchanged Encounters Encounter Location Date Provider Diagnosis [facility] [address] [place] [address] 01/10/2024 Milton Brown [facility] [address] [place] [address] 04/19/2024 Milton Brown Plan Of Treatment Pending Test Test Name Order Date *Liver Function Test (LFT) 10/05/2023 *Liver Function Test (LFT) 12/07/2023 Insurance Providers Payer Name Payer Address Payer Phone Subscriber Number Group Number Insured Name Patient Relationship to Insured Coverage Start Date Coverage End Date [employer] 65 Medicare Preferred [address] [place] [address] [phone] [id number] Mauri Roberts Self - patient is the insured Medical (General) History Medical History History ICD Code Measles Mumps Chicken pox Surgical History Surgery Date(Month/Year) Hernia 2012
--- OUTSIDE RECORDS SUMMARY | 2024-12-26 15:48 | XMS_ITS ---
Author Organization [facility] Address [address] [place] [address] Care Team Providers Care Booth Operator Name Role Phone Nicole NOVAK, Edward Primary Care Provider Unavaila Milton Benitez [phone] Vazquez Encounters Encounter Location Date Provider Diagnosis [facility] [address] [place] [address] 02/22/2024 Milton Brown Plan Of Treatment No Information Progress Notes * Farshad DANIELel EDOB: [birth year] (74 yo M)Acc No.[id number]:02/22/2024 Progress Note Patient:?Mauri DANIEL Provider:?Milton Brown DPM :1950???Age:73 Y???Sex:Male Hai e:02/22/2024 Address:[address] [place], [place] [id number] Pcp:Edward Rivera MD Subjective: * Chief Complaints: * ???1. Dr Vazquez. * Medical History:? Objective: * Vitals:? Assessment: Plan: * Treatment: * Images: * The named appointment provid er may or may not be the originator of this progress note, and it is not deemed complete until electronically signed by the appointment provider. Sign off status: Pending * Provider:?Milton Brown DPM Date:?2023 Generated for Urmila nieto/Shameka/eTransmitting on:?12/26/2024 03:48 PM EDT
--- OUTSIDE RECORDS SUMMARY | 2024-12-26 15:48 | XMS_ITS ---
Author Organization [facility] Address [address] [place] [address] Care Team Providers Care Forge Hand Name Role Phone Edward Rivera MD Primary Care Provider Unavaila Milton Benitez [phone] REASON FOR VISIT cx 04/21 Encounters Encounter Location Date Provider Diagnosis [facility] [address] [place] [address] 04/19/2024 Milton Brown Plan Of Treatment No Information Progress Notes * Mauri DANIEL EDOB: [birth year] (74 yo M)Acc No.[id number]:04/19/2024 Patient:?Mauri Daniel :1950???Age:74 Y???Sex:Male Address:[address] [place] [address] * true * Date:? Generated for Printi ng/Shameka/eTransmitting on:?12/26/2024 03:47 PM EDT
--- OUTSIDE RECORDS SUMMARY | 2024-12-26 15:48 | XMS_ITS ---
Author Organization [facility] Address [address] [place] [address] Care Team Providers Care Director Fraud Name Role Phone Nicole NOVAK, Edward Primary Care Provider Milton Briceño [phone] Encounters Encounter Location Date Provider Diagnosis [address] [address] 04/21/2024 Milton Brown Plan Of Treatment No Information Progress Notes * FREDY Mauri EDOB: (74 yo M)Acc No.[id number]:04/21/2024 Progress Note Patient:?Mauri DANIEL Provider:?Milton Brown DPM :1950???Age:74 Y???Sex:Male Hai e:04/21/2024 Address:[address] [place], [place] [id number] Pcp:Edward Rivera MD Subjective: * Chief Complaints: * ??? * Medical History:? Objective: * Vitals:? Assessment: Plan: * Treatment: * Images: * The named appointment provid er may or may not be the originator of this progress note, and it is not deemed complete until electronically signed by the appointment provider. Sign off status: Pending * Provider:?Milton Brown DPM Date:?2023 Generated for Printi ng/Faxing/eTransmitting on:?12/26/2024 03:48 PM EDT
== END 2024-12-26 13:58 | disposition home or self-care (01) ==
LOC: HO.HMCSH 13:01
PROVIDERS: PCP Internal Medicine; Visit Provider Physician Assistant Medical
DX: Z76.89 Persons encountering health services in other specified circumstances (principal); N40.1 Benign prostatic hyperplasia with lower urinary tract symptoms; N13.8 Other obstructive and reflux uropathy; N63.0 Unspecified lump in unspecified breast; E78.5 Hyperlipidemia, unspecified; E66.811 Obesity, class 1; Z68.31 Body mass index [BMI] 31.0-31.9, adult

== ENCOUNTER → 2024-12-26 13:00 | Outpatient (BNVA) | payer MEDICARE, SELFPAY | PROVIDERS: PCP Internal Medicine; Visit Provider Physician Assistant Medical | DX: N40.1 Benign prostatic hyperplasia with lower urinary tract symptoms (principal); N13.8 Other obstructive and reflux uropathy; N63.0 Unspecified lump in unspecified breast; E78.5 Hyperlipidemia, unspecified; E66.811 Obesity, class 1; Z68.31 Body mass index [BMI] 31.0-31.9, adult; Z71.3 Dietary counseling and surveillance; Z76.89 Persons encountering health services in other specified circumstances | CPT/HCPCS: 99212 ==

== ENCOUNTER 2025-01-17 10:20 | Outpatient (REF) | payer MEDICARE, SELFPAY ==
--- OUTSIDE RECORDS SUMMARY | 2025-01-17 12:03 | XMS_ITS ---
Author Organization [facility] Address [address] [place] [address] Care Team Providers Care Business Banking Officer Name Role Phone Edward Rivera MD Primary Care Provider Unavaila Milton Benitez [phone] REASON FOR VISIT cx 04/21 Encounters Encounter Location Date Provider Diagnosis [facility] [address] [place] [address] 04/19/2024 Milton Brown Plan Of Treatment No Information Progress Notes * Mauri DANIEL EDOB: 2 (74 yo M)Acc No.[id number]:04/19/2024 Patient:?Mauri Daniel :1950???Age:74 Y???Sex:Male Address:[address] [place] [address] * true * Date:? Generated for Printi ng/Fagoyog/eTransmitting on:?01/17/2025 12:03 PM EDT
--- OUTSIDE RECORDS SUMMARY | 2025-01-17 12:03 | XMS_ITS ---
Author Organization [facility] Address [address] [place] [address] Care Team Providers Care Office Executive Name Role Phone Nicole NOVAK, Edward Primary Care Provider Milton Briceño [phone] Encounters Encounter Location Date Provider Diagnosis [address] [address] 04/21/2024 Milton Brown Plan Of Treatment No Information Progress Notes * FREDY Mauri EDOB: (74 yo M)Acc No.[id number]:04/21/2024 Progress Note Patient:?Mauri DANIEL Provider:?Milton Brown DPM :1950???Age:74 Y???Sex:Male Hai e:04/21/2024 Address:[address] [place], [place] [id number] Pcp:Edward Rivera MD Subjective: * Chief Complaints: [...] Brown DPM Date:?2023 Generated for Printi ng/Faxing/eTransmitting on:?01/17/2025 12:03 PM EDT
--- OUTSIDE RECORDS SUMMARY | 2025-01-17 12:03 | XMS_ITS ---
Author Organization [facility] Address [address] [place] [address] Care Team Providers Care Bleach Analyst Name Role Phone Nicole NOVAK, Edward Primary Care Provider Unavaila Milton Benitez [phone] Vazquez Encounters Encounter Location Date Provider Diagnosis [facility] [address] [place] [address] 02/22/2024 Milton Brown Plan Of Treatment No Information Progress Notes * Farshad DANIELel EDOB: 2 (74 yo M)Acc No.[id number]:02/22/2024 Progress Note Patient:?Mauri DANIEL Provider:?Milton Brown DPM :1950???Age:73 Y???Sex:Male Hai e:02/22/2024 Address:[address] [place], [place] [id number] Pcp:Edward Rivera MD Subjective: * Chief Complaints: [...] Brown DPM Date:?2023 Generated for Urmila nieto/Shameka/eTransmitting on:?01/17/2025 12:03 PM EDT
--- OUTSIDE RECORDS SUMMARY | 2025-01-17 12:03 | XMS_ITS | Patient Health Record ---
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 [address] [place] [address] 04/19/2024 Milton Brown Plan Of Treatment Pending Test Test Name Order Date *Liver Function Test (LFT) 10/05/2023 *Liver Function Test (LFT) 12/07/2023 Insurance Providers Payer Name Payer Address Payer Phone Subscriber Number Group Number Insured Name Patient Relationship to Insured Coverage Start Date Coverage End Date [facility] 65 Medicare Preferred [address] [place] [address] [id number] Mauri Roberts Self - patient is the insured Medical (General) History Medical History History ICD Code Measles Mumps Chicken pox Surgical History Surgery Date(Month/Year) Hernia 2012
[2025-01-17 13:53] LABS: Estimated Average Glucose 108 mg/dL; Hemoglobin A1C 135.1727 umol/L; Hemoglobin A1c % 5.4 % (<6.0); Total Hemoglobin (HGBA1C) 3831.3069 umol/L
[2025-01-17 14:16] LABS: PSA,Total (Free>4and<10) 0.98 ng/mL (0.00-4.00)
== END 2025-01-17 10:21 | disposition home or self-care (01) ==
LOC: HO.HMGCLDS 10:20
PROVIDERS: PCP Internal Medicine; Visit Provider Physician Assistant Medical
DX: Z00.00 Encounter for general adult medical examination without abnormal findings (principal); Z13.1 Encounter for screening for diabetes mellitus; Z12.5 Encounter for screening for malignant neoplasm of prostate
CPT/HCPCS: 36415; 83036; 84153

== ENCOUNTER 2025-02-07 12:51 | Outpatient (REF) | payer MEDICARE, SELFPAY ==
--- NOTE | ~2025-02-07 | MM_ITS ---
EXAMINATION: MM DIAGNOSTIC DIGITAL BREAST TOMOSYNTHESIS, BILATERAL Limited left breast ultrasound. CLINICAL INFORMATION: 2 palpable lumps in the lower inner left breast. COMPARISON: Mammography: Comparison is made with relevant prior exams. TECHNIQUE: Digital breast mammography with tomosynthesis is performed in both the craniocaudal and mediolateral oblique views along with computer-aided detection (CAD). FINDINGS: Left: 2 BB markers in the lower inner breast breast without underlying abnormality. No suspicious masses calcifications or other abnormal findings. Targeted color Doppler ultrasound scanning in the area of palpable lumps in the lower inner breast again demonstrates 2 hyperechoic oval subdermal masses likely increased in size from previous ultrasound 2020 at 9:00 7 cm from the nipple the largest measures 20 x 19 x 9 mm in the adjacent smaller lipoma measures 12 x 9 x 6 mm. Right: No significant masses, abnormal calcifications, or other abnormalities. Results are provided to the patient at time of visit by the technologist. MM/MM tomosynthesis diagnostic BI IMPRESSION: Right: Negative. Left: Two hyperechoic oval parallel solid masses at the areas of the patient's palpable lumps slightly increased in size from prior ultrasound in 2020 consistent with benign lipomas. These findings and recommendations were discussed with the patient. If these areas increase in size or there is a new palpable lump the patient was instructed to return for additional diagnostic imaging. If clinical concern persists these areas are amenable to ultrasound-guided core needle biopsy or follow-up. ASSESSMENT: BI-RADS BI-RADS 2 - Benign Findings RECOMMENDATION: Clinical evaluation and follow-up for benign lipomas. Electronically signed by: Maru Phillips DO 02/07/2025 01:50 PM EDT
--- OUTSIDE RECORDS SUMMARY | 2025-02-07 13:55 | XMS_ITS ---
Author Organization [facility] Address [address] [place] [address] Care Team Providers Care Volleyball Player Name Role Phone Edward Rivera MD Primary Care Provider Unavaila Milton Benitez [phone] REASON FOR VISIT cx 04/21 Encounters Encounter Location Date Provider Diagnosis [facility] [address] [place] [address] 04/19/2024 Milton Brown Plan Of Treatment No Information Progress Notes * Mauri DANIEL EDOB: 2 (74 yo M)Acc No.[id number]:04/19/2024 Patient:?Mauri Daniel :1950???Age:74 Y???Sex:Male Address:[address] [place] [address] * true * Date:? Generated for Printi ng/Shameka/eTransmitting on:?02/07/2025 01:54 PM EDT
--- OUTSIDE RECORDS SUMMARY | 2025-02-07 13:55 | XMS_ITS | Patient Health Record ---
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 Rx management (4),Response to treatment - Unchanged Encounters Encounter Location Date Provider Diagnosis [facility] [address] [place] [address] 04/19/2024 Milton Brown Plan Of Treatment Pending Test Test Name Order Date *Liver Function Test (LFT) 10/05/2023 *Liver Function Test (LFT) 12/07/2023 Insurance Providers Payer Name Payer Address Payer Phone Subscriber Number Group Number Insured Name Patient Relationship to Insured Coverage Start Date Coverage End Date [facility] 65 Medicare Preferred [address] [place] [address] [id number] Mauri Roberts Self - patient is the insured Medical (General) History Medical History History ICD Code Measles Mumps Chicken pox Surgical History Surgery Date(Month/Year) Hernia 2012
--- OUTSIDE RECORDS SUMMARY | 2025-02-07 13:55 | XMS_ITS ---
Author Organization [facility] Address [address] [place] [address] Care Team Providers Care Home Comfort Advisor Name Role Phone Nicole NOVAK, Edward Primary Care Provider Milton Briceño [phone] Encounters Encounter Location Date Provider Diagnosis [address] [address] 04/21/2024 Milton Brown Plan Of Treatment No Information Progress Notes * FREDYFarshad WATTSel EDOB: (74 yo M)Acc No.[id number]:04/21/2024 Progress Note Patient:?Mauri DANIEL Provider:?Milton Brown DPM :1950???Age:74 Y???Sex:Male Hai e:04/21/2024 Address:[address] [place], [place] [id number] Pcp:Edward Rivera MD Subjective: * Chief Complaints: [...] Brown DPM Date:?2023 Generated for Printi ng/Faxing/eTransmitting on:?02/07/2025 01:54 PM EDT
--- OUTSIDE RECORDS SUMMARY | 2025-02-07 13:55 | XMS_ITS ---
Author Organization [facility] Address [address] [place] [address] Care Team Providers Care Car Ferrier Name Role Phone Nicole NOVAK, Edward Primary Care Provider Unavaila Milton Benitez [phone] Vazquez Encounters Encounter Location Date Provider Diagnosis [facility] [address] [place] [address] 02/22/2024 Milton Brown Plan Of Treatment No Information Progress Notes * Farshad DANIELel EDOB: 2 (74 yo M)Acc No.[id number]:02/22/2024 Progress Note Patient:Mauri TAYLOR Provider:?Milton Brown DPM :1950???Age:73 Y???Sex:Male Hai e:02/22/2024 Address:[address] [place], [place] [id number] Pcp:Edward Rivera MD Subjective: * Chief Complaints: [...] Brown DPM Date:?2023 Generated for Urmila nieto/Shameka/eTransmitting on:?02/07/2025 01:54 PM EDT
== END 2025-02-07 12:52 | disposition home or self-care (01) ==
LOC: HO.MAMMO 12:51
PROVIDERS: PCP Physician Assistant Medical; Visit Provider Physician Assistant Medical
DX: N63.25 Unspecified lump in the left breast, overlapping quadrants (principal)
CPT/HCPCS: 76642; 77062; 77066

== ENCOUNTER → 2025-02-07 13:00 | Outpatient (BNV) | payer MEDICARE, SELFPAY | PROVIDERS: PCP Physician Assistant Medical; Visit Provider Internal Medicine | DX: D24.2 Benign neoplasm of left breast (principal) | CPT/HCPCS: 76642; 77066; G0279 ==

== ENCOUNTER 2025-08-03 08:28 | Outpatient (AMB) | payer MEDICARE, SELFPAY ==
--- OUTSIDE RECORDS SUMMARY | 2024-02-22 07:30 | XMS_ITS ---
Author Organization [facility] Address [address] [place] [address] Care Team Providers Care Thermit Welding Machine Operator Name Role Phone Edward Rivera MD Primary Care Provider UnavailMilton Joshi [phone] Vazquez Encounters Encounter Location Date Provider Diagnosis [facility] [address] [place] [address] 02/22/2024 Milton Brown Plan Of Treatment No Information Progress Notes * Mauri DANIEL EDOB: 2 (75 yo M)Acc No.[id number]:02/22/2024 Progress Note Patient: Mauri BAEZ Provider: Afsaneh Brown DPM :1950 A ge:73 Y S ex:Male Date:02/22/2024 Address:[address] [place], [place] [id number] Pcp:Edward Rivera MD Subjective: * Chief Complaints: * [address] Vazquez. * Medical History: Objective: * Vitals: Assessment: Plan: * Treatment: * Images: * The named appointment provid er may or may not be the originator of this progress note, and it is not deemed complete until electronically signed by the appointment provider. Sign off status: Pending * Provider: Afsaneh Brown DPM Date: 0 02/22/2024 Generated for Printi ng/Faxing/eTransmitting on: 1 08:42 AM EDT
--- OUTSIDE RECORDS SUMMARY | 2024-04-21 06:15 | XMS_ITS ---
Author Organization [facility] Address [address] [place] [address] Care Team Providers Care Ground Instructor Advanced Name Role Phone Nicole NOVAK, Edward Primary Care Provider UnavailMilton Joshi [phone] Encounters Encounter Location Date Provider Diagnosis [facility] [address] [place] [address] 04/21/2024 Milton Brown Plan Of Treatment No Information Progress Notes * Mauri DANIEL EDOB: 2 (75 yo M)Acc No.[id number]:04/21/2024 Progress Note Patient: Mauri BAEZ Provider: Afsaneh Brown DPM :1950 A ge:74 Y S ex:Male Date:04/21/2024 Address:[address] [place], [place] [id number] Pcp:Edward Rivera MD Subjective: * Chief Complaints: * * Medical History: Objective: * Vitals: Assessment: Plan: * Treatment: * Images: * The named appointment provid er may or may not be the originator of this progress note, and it is not deemed complete until electronically signed by the appointment provider. Sign off status: Pending * Provider: Afsaneh Brown DPM Date: 0 04/21/2024 Generated for Printi ng/Faxing/eTransmitting on: 08:42 AM EDT
--- NOTE | 2025-08-03 08:29 | MHC.OFFVIS ---
Intake Visit Reasons: 1Y PSA/PVR Intake Note: Patient is present for Yearly PSA/PVR Follow up Urology Med: Finasteride Antibiotic Allergy: None Blood Thinner: None PVR: 60ml Time Piece Repairer Required: No Accompanied by: Self / Same As Patient Allergies No Known Drug Allergies (NO KNOWN DRUG ALLERGIES) Allergy (Unknown, Verified 08/03/25 08:36) NONE HPI Comments Details: Mauri DANIEL is a very pleasant male. He is a patient of Dr Myrick. They are seen in the office today for the following urologic conditions. - lower urinary tract symptoms Yearly follow-up Continues with finasteride - every other day Otherwise stable Refill finasteride Follow with primary care Contact us if he has any issues Lower Urinary Tract Symptoms: Large prostate, mild incomplete emptying. Maximized on finasteride. Happy with current voiding performance Minimal urgency on medication Does have occasional nocturia based on what he drinks Finasteride M/W/F SHARMIN normal 12 month PSA Current visit is for further evaluation of, lower urinary tract symptoms, predominate obstructive symptoms. Current treatment includes 5-AR. Prostate Symptom Score 07/22 , Moderate (-), Bother 3. Symptoms include incomplete emptying, weak stream, and are progressing. Prior Prostate Score unknown. Prostate volume 07/22 US 122 size - PSA 07/02 3.4, 08/24 .9, 08/26 1.3, 01/26 1.0 Testing at next visit will include bladder scan. Treatment plan continue 5AR [facility] Medical History Left breast mass History of mammogram (~10/08/20) Class 1 obesity with body mass index (BMI) of 31.0 to 31.9 in adult Hyperlipidemia LDL goal <100 Establishing care with new doctor, encounter for Prostatism Surgical History History of colonoscopy (~09/13/15) History of inguinal hernia repair Family History Father No problems noted. Mother No problems noted. Social History Housing: House Alcohol intake: current Alcohol intake frequency: a few times a week Patient Tobacco Use Status: Never used Tobacco Tobacco use type: Cigarette e-Cigarette/Vaping Use: Never Used Second Hand Smoke Exposure: No service: No Current occupational status: retired Cognitive needs: No Hearing needs: No Vision needs: No Review of Systems Const Denies chills and Denies fever(s) Card Reports no additional complaints and Denies syncope Resp Denies cough GI Denies abdominal pain and Denies heartburn Reports as per HPI and Denies change in libido Neuro Denies syncope Psych Denies change in libido Endo Denies change in libido Physical Exam Const General: cooperative, healthy appearing, comfortable and no acute distress Orientation/consciousness: patient oriented x3 HEENT Face and sinus: Yes normal facial exam Mouth: moist mucous membranes Neck Neck: Yes normal visual inspection, Yes full ROM and Yes trachea midline Chest Chest palpation & inspection: normal inspection of the chest Resp Effort & Inspection: normal respiratory effort, able to speak in complete sentences and no respiratory distress GI Inspection: Yes normal to inspection Back/Spine/Pelvis Cervical Spine: normal cervical lordosis Thoracic/Lumbar Spine: thoracic and lumbar spine normal to inspection Skin General skin exam: no rashes or lesions noted Neuro General: patient oriented x3, gait normal, tone normal and moves all extremities Extrem General: Yes normal to inspection and Yes capillary refill normal Office Procedures Post Void Residual Post Residual Void Post Void Residual (PVR): 60 [id number]-[id number] Void Residual by ultrasound Assessment & Plan Assessment & Plan (1) BPH w urinary obs/LUTS: Code(s): N40.1 - Benign prostatic hyperplasia with lower urinary tract symptoms; N13.8 - Other obstructive and reflux uropathy Category: Medical (2) Incomplete emptying of bladder due to benign prostatic hyperplasia: Code(s): N40.1 - Benign prostatic hyperplasia with lower urinary tract symptoms; R33.9 - Retention of urine, unspecified Category: Medical Plan Follow-up prn Orders: Orders AMB Post Void Residual by ultrasound Today N40.1 - Benign prostatic hyperplasia with lower urinary tract symptoms, R33.9 - Retention of urine, unspecified Medications: Refilled finasteride 5 mg PO DAILY 90 tabs 3RF 90 days Patient Instructions: This note is constructed using voice recognition software. While every effort has been made to ensure accuracy loom cleaner errors may have been included. Imaging studies, laboratory and physical exam results were discussed and reviewed in detail. No major barriers to patient understanding were identified. An opportunity to ask questions regarding the treatment plan was provided. All questions were answered. The patient expressed understanding and agreement with the above treatment plan. The patient is aware they should contact our office by phone for worsening of their current condition or the appearance of new urologic symptoms. Compliance is encouraged with any medications and followup testing that is ordered. It is a privilege to participate in the urologic care of your patient. If you have any questions or concerns regarding treatment for the above conditions, or other urologic issues, please do not hesitate to contact me. The office telephone contact is [phone]. Sincerely, Dr Kong Almodovar MD, [facility] - Urology Compassionate Specialist Care for the Genitourinary System Coding Level of Care Code Est Pt Level 4 (70860) Complex EM visit Add On G2211 Diagnoses BPH w urinary obs/LUTS N40.1; N13.8 Incomplete emptying of bladder due to benign prostatic hyperplasia N40.1; R33.9 CPT Codes Post Residual Void - PVR CPT Code: 57043-Rfse Void Residual by ultrasound ([id number])
--- OUTSIDE RECORDS SUMMARY | 2025-08-03 08:42 | XMS_ITS | Patient Health Record ---
Author Organization [facility] Address [address] [place] [address] Drive [address] [place] [address] Care Team Providers Care Dip Lube Operator Name Role Phone GLENNY KENNEDY Primary Care Provider Coni Harrison Lei Giles [phone] Reason For Referral No Information Medications Medication SIG (Take, Route, Fr equency, Duration) Notes Start Date End Date Status Suprep Bowel Prep 1 kit as directed Oral ly as directed; Duration: 1 dose 07/03/2015 Activ e Problems Problem Type SNOMED Code ICD Code Onset Dates Problem Status W/U Status Risk Notes Problem Pre-surgery evaluation (948748739) Other specified pre-operative examination (V72.83) Active confirmed Problem Colon cancer screening (445549875) Colon cancer screening (V76.51) Active confirmed Plan Of Treatment Future Test Test Name Order Date COLONOSCOPY 07/02/2015 Next Appt Details Provider Name:Lei Watson Harrison , 11/27/2025 10:30:00 AM, [address] [facility], [address], [place], [address], Insurance Providers Payer Name Payer Address Payer Phone Subscriber Number Group Number Insured Name Patient Relationship to Insured Coverage Start Date Coverage End Date [facility] [address] [place] [address] [phone] [id number] MAURA DANIEL Self - patient is the insured Medical (General) History Medical History History ICD Code screening colonoscopy 03-05-20 05-negative except for mild sigmoid diverticulosis and small internal hemorrhoids Denies SD,DM,CVA,Lung disease,renal dise ase Surgical History Surgery Date(Month/Year) Right inguinal hernia 5 years ago
--- OUTSIDE RECORDS SUMMARY | 2025-08-03 08:42 | XMS_ITS | Patient Health Record ---
Author Organization [facility] Address [address] [place] [address] Care Team Providers Care Pilot Boat Operator Name Role Phone Edward Rivera MD Primary Care Provider Milton Briceño Unavailable [phone] Allergies No Known Allergies Reason For Referral No Information Medications Medication SIG (Take, Route, Frequency, Duration) Notes Start Date End Date Status Finasteride Active Finasteride Active Lamisil 250mg 1 tablet orally Once daily; Duration: 30 days Active Social History Tobacco Use: [...] Problem Status W/U Status Risk Notes Problem Fungal infection of nail (861585697) 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 Rx management (4),Response to treatment - Unchanged Plan Of Treatment Pending Test Test Name Order Date *Liver Function Test (LFT) 10/05/2023 *Liver Function Test (LFT) 12/07/2023 Insurance Providers Payer Name Payer Address Payer Phone Subscriber Number Group Number Insured Name Patient Relationship to Insured Coverage Start Date Coverage End Date [facility] 65 Medicare Preferred [address] [place] [address] [id number] Mauri Roberts Self - patient is the insured Medical (General) History Medical History History ICD Code Measles Mumps Chicken pox Surgical History Surgery Date(Month/Year) Hernia 2012
== END 2025-08-03 08:53 | disposition home or self-care (01) ==
LOC: HO.HUSH 08:29
PROVIDERS: PCP Internal Medicine; Visit Provider Urology
DX: N40.1 Benign prostatic hyperplasia with lower urinary tract symptoms (principal); N13.8 Other obstructive and reflux uropathy; R33.9 Retention of urine, unspecified
CPT/HCPCS: 99214

== ENCOUNTER → 2025-08-03 08:28 | Outpatient (BNVA) | payer MEDICARE, SELFPAY | PROVIDERS: PCP Internal Medicine; Visit Provider Urology | DX: N40.1 Benign prostatic hyperplasia with lower urinary tract symptoms (principal); N13.8 Other obstructive and reflux uropathy; R33.9 Retention of urine, unspecified | CPT/HCPCS: 51798; 99212 ==